=== PATIENT | female | born 1955 | race Caucasian/White ===

== ENCOUNTER → 2024-02-08 10:52 | Outpatient (REF) | payer MEDICARE, BC, SELFPAY | LOC: WDC 10:52 | PROVIDERS: ATTENDING PHYSICIAN Obstetrics & Gynecology Gynecology; FAMILY PHYSICIAN Family Medicine | DX: M81.0 Age-related osteoporosis without current pathological fracture (principal); Z12.31 Encounter for screening mammogram for malignant neoplasm of breast | CPT/HCPCS: 77063; 77067; 77080 ==

== ENCOUNTER → 2025-02-07 12:19 | Outpatient (REF) | payer MEDICARE, BC, SELFPAY | LOC: WDC 12:19 | PROVIDERS: ATTENDING PHYSICIAN Obstetrics & Gynecology Gynecology; FAMILY PHYSICIAN Family Medicine | DX: Z12.31 Encounter for screening mammogram for malignant neoplasm of breast (principal) | CPT/HCPCS: 77063; 77067 ==